=== PATIENT | male | born 1980 ===

== ENCOUNTER 2017-12-15 11:01 | Outpatient (CLI) | payer OTHER ==
[~2017-12-15] VITALS: Ht 182.9 cm; Wt 81.6 kg
== END 2017-12-15 11:20 | disposition home or self-care (01) ==
LOC: OFIC 805 11:01
DX: H61.21 Impacted cerumen, right ear (principal); H90.41 Sensorineural hearing loss, unilateral, right ear, with unrestricted hearing on the contralateral side

== ENCOUNTER 2017-12-29 10:17 | Outpatient (CLI) | payer OTHER ==
[~2017-12-29] VITALS: Ht 182.9 cm; Wt 81.6 kg
== END 2017-12-29 17:23 | disposition home or self-care (01) ==
LOC: OFIC 805 10:17
DX: H61.21 Impacted cerumen, right ear (principal); J34.89 Other specified disorders of nose and nasal sinuses; R51 Headache; H90.41 Sensorineural hearing loss, unilateral, right ear, with unrestricted hearing on the contralateral side